=== PATIENT | male | born 1990 | race Hispanic/Latino ===

== ENCOUNTER 2020-01-18 | Emergency (ER) | payer SELFPAY | END 2020-01-18 14:25 | disposition home or self-care (01) | DRG 153 | DX: J02.9 Acute pharyngitis, unspecified (principal) ==

== ENCOUNTER 2024-12-22 18:38 | Emergency (ER) | payer SELFPAY ==
[~2024-12-22] VITALS: Ht 167.6 cm; Wt 79.0 kg
[2024-12-22] MEDS ORDERED: KETOROLAC TROMETHAMINE 30 MG/ML SDV IM ONE (19:30)
[2024-12-22] MEDS ORDERED: COLCHICINE 0.6 MG/TAB PO ONE ×2 (19:30→20:30)
[2024-12-22 19:31] VITALS: BP 173/102
[2024-12-22] MEDS ORDERED: MEDDOSEPAK PO (19:58)
[2024-12-22 20:00] VITALS: BP 160/96
[2024-12-22 20:30] VITALS: BP 145/94
[2024-12-22 20:52] VITALS: BP 150/96
[2024-12-22 20:57] VITALS: BP 144/103
== END 2024-12-22 20:57 | disposition home or self-care (01) | DRG 554 ==
LOC: ED 18:38
DX: M10.071 Idiopathic gout, right ankle and foot (principal); I10 Essential (primary) hypertension